=== PATIENT | female | born 1980 | race Caucasian/White ===

== ENCOUNTER 2024-10-26 13:27 | Outpatient (CLI) | payer OTHER ==
--- NOTE | 2024-10-26 14:23 | RADIOLOGY REPORT ---
EXAM: CT CT UPPER EXTREMITIES HISTORY: PAIN R ELBOW COMPARISON: For reasons unknown, no elbow radiographs are available for comparison purposes. TECHNIQUE: Noncontrast axial CT images of the right elbow were performed. Sagittal and coronal reform atted images were obtained. This CT exam was performed using one or more of the following dose reduct ion techniques: Automated exposure control, adjustment of the mA and/or kV according to patient size, or use of iterative reconstruction technique. CT Dose: CTDI volume is 6.15 mGy. Dose-length product is 148.9 mGy*cm. FINDINGS: There is a subacute appearing fracture of the right radial head anterior margin, with some callus formation present along the distal margin of the fracture (images 28-34, series 601). There is an acute appearing mildly displaced fracture of the ulnar coronoid process (image 24, series 601). T here is a mildly displaced osteochondral fracture of the capitellum (image 16, series 602), likely [place] to subacute. 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 The anterior and posterior fat pads are elevated by joint effusion versus hemarth rosis. IMPRESSION: 1. Subacute appearing fracture of the right radial head. 2. Acute appearing mildly displaced fracture of the ulnar coronoid process. 3. Acute to subacute appearing osteochondral fracture of the capitellum. 4. Mild ulnotrochlear osteoarthritis. 5. Right elbow effusion versus hemarthrosis.
== END 2024-10-26 23:59 | disposition home or self-care (01) ==
LOC: RAD 13:27
PROVIDERS: ATTEND Student in an Organized Health Care Education/Training Program
DX: S52.121A Displaced fracture of head of right radius, initial encounter for closed fracture (principal); S52.041A Displaced fracture of coronoid process of right ulna, initial encounter for closed fracture; S42.451A Displaced fracture of lateral condyle of right humerus, initial encounter for closed fracture; M19.021 Primary osteoarthritis, right elbow; M25.721 Osteophyte, right elbow; M25.821 Other specified joint disorders, right elbow; X58.XXXA Exposure to other specified factors, initial encounter; Y93.89 Activity, other specified; Y92.89 Other specified places as the place of occurrence of the external cause; Y99.8 Other external cause status
CPT/HCPCS: 73200

== ENCOUNTER 2025-02-20 08:44 | Outpatient (CLI) | payer OTHER ==
--- NOTE | 2025-02-20 10:41 | RADIOLOGY REPORT ---
CLINICAL INDICATION: SHOULDER AND WRIST PAIN AFTER FALL TECHNIQUE: 2 radiographic views of the right shoulder were obtained. Comparison: DI WRIST, COMPLETE (3VW MIN) on DOS: 02/20/25, DI HAND, COMPLETE (3VW MIN) on DOS: 02/20/25 FINDINGS/IMPRESSION: There is no evidence of acute fracture or dislocation. The visualized joint space is well maintained. The alignment is anatomical. There is no radiopaque foreign body.
--- NOTE | 2025-02-20 10:41 | RADIOLOGY REPORT ---
CLINICAL INDICATION: SHOULDER AND WRIST PAIN AFTER FALL - INJURY 08/22/24 TECHNIQUE: 3 radiographic views of the right hand were obtained. Comparison: DI WRIST, COMPLETE (3VW MIN) on DOS: 02/20/25, DI SHOULDER, COMPLETE (MIN 2 VWS) on DOS: 02/20/25 FINDINGS/IMPRESSION: There is no evidence of acute fracture or dislocation. The visualized joint space is well maintained. The alignment is anatomical. There is no radiopaque foreign body.
--- NOTE | 2025-02-20 10:41 | RADIOLOGY REPORT ---
CLINICAL INDICATION: SHOULDER AND WRIST PAIN AFTER FALL TECHNIQUE: 3 radiographic views of the right wrist were obtained. Comparison: DI HAND, COMPLETE (3VW MIN) on DOS: 02/20/25, DI SHOULDER, COMPLETE (MIN 2 VWS) on DOS: 02/20/25 FINDINGS/IMPRESSION: There is no evidence of acute fracture or dislocation. The visualized joint space is well maintained. The alignment is anatomical. There is no radiopaque foreign body.
== END 2025-02-20 23:59 | disposition home or self-care (01) ==
LOC: RAD 08:44
PROVIDERS: ATTEND Family Medicine
DX: S40.021A Contusion of right upper arm, initial encounter (principal); M25.511 Pain in right shoulder; M25.531 Pain in right wrist; M79.641 Pain in right hand; X58.XXXA Exposure to other specified factors, initial encounter; Y93.89 Activity, other specified; Y92.89 Other specified places as the place of occurrence of the external cause; Y99.8 Other external cause status
CPT/HCPCS: 73030; 73110; 73130